=== PATIENT | female | born 1940 | race Caucasian/White ===

== ENCOUNTER 2016-06-17 14:38 | Emergency (ER) | payer OTHER ==
[~2016-06-17] VITALS: Ht 157.5 cm; Wt 63.6 kg
[2016-06-17 14:46] VITALS: Ht 157.5 cm; Wt 63.6 kg
[2016-06-17] MEDS ORDERED: ACETAMINOPHEN 500 MG TAB PO STA (17:36)
[2016-06-17] MEDS ORDERED: SOD CHLORIDE 0.9% 1,000 ML IV STA (17:36)
--- NOTE | 2016-06-17 18:24 | RADRPT ---
PROCEDURE: XR Chest. CLINICAL INDICATION: Chest pain. Abdominal pain TECHNIQUE: Portable AP semi erect view of the chest was obtained. COMPARISON: None. FINDINGS: The cardiomediastinal silhouette is within upper normal limits. The lungs are clear. There is no e vidence for pleural effusion, pneumothorax or pulmonary vascular congestion. The osseous structures are intact with no evidence for acute abnormality. Calcification is visible within the aorta RPTAT:HJJR IMPRESSION: 1.No evidence for acute intrathoracic pathology. 2. Aortic atherosclerosis is present. Physician Joey Date Time Electronically viewed and signed by Physician Joey on 06/17/2016 18:23 JR/
--- NOTE | 2016-06-17 19:03 | RADRPT ---
PROCEDURE: CT Abdomen and Pelvis without contrast. CLINICAL INDICATION: Right-sided abdominal pain TECHNIQUE: CT scan of the abdomen and pelvis without contrast was performed without intravenous co ntrast. Coronal and sagittal reformatted images were obtained from the axial source images. Images were reviewed on a high-resolution PACS workstation. The total exam DLP equals 368 mGy-cm. One or more of the following dose reduction techniques were used: Automated exposure control Adjustment of the mA and/or kV according to patient size. Use of iterative reconstruction technique. COMPARISON: None. FINDINGS: There is mild atelectasis/scarring within the bilateral lung bases. Patchy ground-glass opacities a re also visualized within the bilateral lower lobes which can be seen with pulmonary edema. There i s cardiomegaly. There are calcifications within the coronary arteries. The heart size is within no rmal limits. The aorta and its branches are normal in size and caliber. Mild to moderate atherosclerotic vascular calcifications are present. The kidneys are symmetric in size and density. There is no perinephric fat stranding. There is no ne phroureterolithiasis or hydronephrosis. The ureters are normal in course and caliber. Evaluation of solid organs is limited due to the lack of intravenous contrast. However, the liver, g allbladder, spleen, pancreas, and adrenal glands are unremarkable. Evaluation of the gastrointestinal tract is limited due to the lack of oral contrast. The esophagus and stomach are unremarkable. The small bowel loops are normal in caliber without evidence of smal l bowel obstruction. Stool is noted throughout the colon. There are also diverticula within the as cending, descending, and sigmoid colon without evidence for diverticulitis. The appendix is visuali zed, and is normal. There is no free intraperitoneal fluid or pneumoperitoneum. There is no mesenteric, retroperitoneal, or pelvic lymphadenopathy. The bladder is mildly distended, but grossly unremarkable. The uterus and adnexa are unremarkable. There is no pelvic free fluid. There is a mild to moderate compression fracture of the L1 vertebral body and a mild compression fra cture of the T12 vertebral body. These may be chronic. There are mild to moderate degenerative sana nges of both hips with mild joint space narrowing and osseous spurring. There is facet arthropathy within the lumbar spine more prominent at L4-L5 and L5-S1. RPTAT: ZZ IMPRESSION: 1. No acute intra-abdominal abnormality. 2. Diverticulosis without evidence for diverticulitis. 3. Atherosclerotic vascular disease. 4. Cardiomegaly with mild pulmonary edema. 5. Mild to moderate compression fractures of the T12 and L1 vertebral bodies which may be chronic. .Bisi Oneal MD, MD Date Time Electronically viewed and signed by .Bisi Oneal MD, MD on 06/17/2016 19:03 .T/
[2016-06-17 19:41] LABS: BASOPHILS % 0.4 % (0.0-2.0); EOSINOPHILS # 0.1 10^3/ul (0.0-0.5); EOSINOPHILS % 1.3 % (0.0-7.0); HEMATOCRIT 39.6 % (37.0-47.0); HEMOGLOBIN 13.5 g/dl (12.0-16.0); LYMPHOCYTES # 1.1 10^3/ul (0.8-2.9); LYMPHOCYTES % 21.8 % (15.0-51.0); MEAN CORPUSCULAR HEMOGLOBIN 34.5 pg (29.0-33.0); MEAN CORPUSCULAR HGB CONC 34.1 g/dl (32.0-37.0); MEAN CORPUSCULAR VOLUME 101.4 fl (82.0-101.0); MEAN PLATELET VOLUME 7.5 fl (7.4-10.4); MONOCYTE # 0.9 10^3/ul (0.3-0.9); MONOCYTES % 17.5 % (0.0-11.0); NEUTROPHIL # 3.1 10^3/ul (1.6-7.5); PLATELET COUNT 152 10^3/UL (140-440); RED BLOOD COUNT 3.91 10^6/ul (4.20-5.40); UNCORRECTED WBC 5.2 10^3/ul (4.8-10.8); WHITE BLOOD COUNT 5.2 10^3/ul (4.8-10.8)
[2016-06-17 19:43] LABS: CONDITION 1; LH ANALYZER COMMENTS 1
[2016-06-17 19:51] LABS: ALBUMIN 3.9 g/dl (3.3-4.9)
[2016-06-17 19:52] LABS: POTASSIUM 4.2 mmol/L (3.5-5.1)
[2016-06-17 19:54] LABS: BILIRUBIN,INDIRECT 0.8 mg/dl (0-1.1); BILIRUBIN,TOTAL 0.8 mg/dl (0.2-1.3); CREATININE 0.74 mg/dl (0.44-1.00); TOTAL PROTEIN 6.7 g/dl (6.1-8.1)
[2016-06-17 19:55] LABS: ALBUMIN/GLOBULIN RATIO 1.39; CALCIUM 8.9 mg/dl (8.4-10.2)
[2016-06-17] MEDS ORDERED: SOD CHLORIDE 0.9% 500 ML IV ONE (21:00)
[2016-06-17 21:23] LABS: PLATELET ESTIMATE PLT APPEAR ADEQUATE
[2016-06-17 21:45] LABS: ADD UMIC YES; URINE BILIRUBIN (Dip) NEGATIVE (NEGATIVE); URINE BLOOD (Dip) 1+ (NEGATIVE); URINE COLOR LT. YELLOW (YELLOW); URINE GLUCOSE (Dip) NEGATIVE (NEGATIVE); URINE KETONES (Dip) NEGATIVE (NEGATIVE); URINE LEUKOCYTE ESTERASE (Dip) 1+ (NEGATIVE); URINE NITRITE (Dip) NEGATIVE (NEGATIVE); URINE TOTAL PROTEIN (Dip) NEGATIVE (NEGATIVE); URINE UROBILINOGEN (Dip) 0.2 E.U./dL (0.1-1.0)
[2016-06-17 22:24] LABS: BACTERIA,URINE OCCASIONAL; SQUAMOUS EPITHELIAL CELL,UR OCCASIONAL
[2016-06-17] MEDS ORDERED: ALBU8.5H3 INH (22:56)
[2016-06-17] MEDS ORDERED: CEPH-443 PO (22:56)
[2016-06-17] MEDS ORDERED: ACET500C5 PO (22:56)
[2016-06-17 23:03] VITALS: BP 155/89; PULSE 81; RESP 20; TEMP 98.1
--- NOTE | 2016-06-17 23:04 | ERD ---
ER Documentation Chief Complaint Date/Time DATE: 06/17/16 TIME: 22:59 Chief Complaint hx siatica back pain x today HPI 76-year-old female with a past medical history of hypertension, hyperlipidemia, diabetes presents to the ED complaining of bilateral back pain that started 3 days ago. Patient's son interpreted Italian at this time. Stated that patient' s back feels "hard". Denies any nausea, vomiting, diarrhea. Reports the patient has normal bowel movements. Denies any melena, bloody stools. Patient reports that she has a slight dry cough. Denies any fever at home however stated that they have a low-grade fever here. States that she took all of her medications. Reports that she is taking vitamin D, losartan, atenolol, calcium , simvastatin, aspirin, albuterol psyllium, metformin. Denies any chest pain, shortness of breath, dyspnea on exertion, orthopnea, pleuritic chest pain. ROS All systems reviewed and are negative except as per history of present illness. Medications Home Meds Active Scripts Cephalexin* (Keflex*) 500 Mg Capsule, 500 MG PO QID for 7 Days, CAP Prov:SHAD ETIENNE PA-C 06/17/16 Albuterol Sulfate* (Proair HFA*) 8.5 Gm Hfa.aer.ad, 2 PUFF INH Q4, #1 INHALER Prov:SHAD ETIENNE PA-C 06/17/16 Acetaminophen* (Tylophen*) 500 Mg Capsule, 1 CAP PO Q6H Y for PAIN AND OR ELEVATED TEMP, #20 CAP Prov:SHAD ETIENNE PA-C 06/17/16 Allergies Allergies: Coded Allergies: No Known Allergy (Unverified , 06/17/16) PMhx/Soc Medical and Surgical Hx: pt denies Surgical Hx History of Surgery: No Anesthesia Reaction: No Hx Neurological Disorder: No Hx Respiratory Disorders: No Hx Psychiatric Problems: No Hx Miscellaneous Medical Probl: No Hx Alcohol Use: No Hx Substance Use: No Hx Tobacco Use: No Smoking Status: Unknown if ever smoked Physical Exam Vitals Vital Signs Date Time Temp Pulse Resp B/P Pulse Ox O2 Delivery O2 Flow Rate FiO2 06/17/16 14:46 100.4 88 20 171/96 98 Physical Exam Const: Wvw-tlb-kjudmsyxw, well-nourished. In no acute distress. Head: Atraumatic, normocephalic Eyes: Normal Conjunctiva without injection. No purulent discharge. ENT: Normal external ear, nose. Moist oropharynx without tonsillar exudates. Non -erythematous pharynx. Uvula midline. No drooling. No trismus. Neck: No cervical midline tenderness. Full range of motion. No meningismus. No cervical lymphadenopathy. No JVD. Resp: Clear to auscultation bilaterally. No wheezing, rhonchi, rales, or crackles. No accessory muscle use. No retractions. Cardio: Regular rate and rhythm. No murmurs, rubs or gallops. Abd: Soft, no tenderness to palpation, non distended. Normal bowel sounds. No palpable masses. No rebound tenderness. No guarding. Negative McBurney's point. Negative psoas sign. Negative obturator sign. Skin: No petechiae or rashes Back: No midline tenderness. Tenderness to palpation of the bilateral paraspinal muscles near the T 7 L1. Slight bilateral CVA tenderness. Ext: No cyanosis, or edema. Neur: Awake and alert. Normal gait. Normal coordination. Psych: Normal Mood and Affect Result Diagram: 06/17/16189906/17/161899 Results 24 hrs Laboratory Tests Test 06/17/16 19:00 06/17/16 21:34 Alanine Aminotransferase (ALT/SGPT) 23IU/L Albumin 3.9g/dl Albumin/Globulin Ratio 1.39 Alkaline Phosphatase 86IU/L Anion Gap 14 Aspartate Amino Transf (AST/SGOT) 21IU/L Basophils # 0.010^3/ul Basophils % 0.4% Blood Morphology Comment Blood Urea Nitrogen 10mg/dl Calcium Level 8.9mg/dl Carbon Dioxide Level 27mmol/L Chloride Level 91mmol/L Creatinine 0.74mg/dl Direct Bilirubin 0.00mg/dl Eosinophils # 0.110^3/ul Eosinophils % 1.3% Globulin 2.80g/dl Glucose Level 101mg/dl Hematocrit 39.6% Hemoglobin 13.5g/dl Indirect Bilirubin 0.8mg/dl Lipase 135U/L Lymphocytes # 1.110^3/ul Lymphocytes % 21.8% Mean Corpuscular Hemoglobin 34.5pg Mean Corpuscular Hemoglobin Concent 34.1g/dl Mean Corpuscular Volume 101.4fl Mean Platelet Volume 7.5fl Monocytes # 0.910^3/ul Monocytes % 17.5% Neutrophils # 3.110^3/ul Neutrophils % 59.0% Nucleated Red Blood Cells # 0.010^3/ul Nucleated Red Blood Cells % 0.0/100WBC Platelet Count 98760^3/UL Platelet Estimate PLT APPEAR ADEQUATE Potassium Level 4.2mmol/L Red Blood Count 3.9110^6/ul Red Cell Distribution Width 13.0% Sodium Level 128mmol/L Total Bilirubin 0.8mg/dl Total Protein 6.7g/dl White Blood Count 5.210^3/ul Urine Bacteria OCCASIONAL Urine Bilirubin NEGATIVE Urine Clarity CLEAR Urine Color LT. YELLOW Urine Glucose NEGATIVE% Urine Hemoglobin 1+ Urine Ketones NEGATIVE Urine Leukocyte Esterase 1+ Urine Microscopic RBC 2-5/HPF Urine Microscopic WBC 2-5/HPF Urine Nitrite NEGATIVE Urine Specific [place] <=1.005 Urine Squamous Epithelial Cells OCCASIONAL Urine Total Protein NEGATIVE Urine Urobilinogen 0.2 E.U./dL Urine pH 7.0 Current Medications Medications (Trade) Dose Ordered Sig/Vonda Route PRN Reason Start Time Stop Time Status Last Admin Dose Admin Sodium Chloride (NS) 1,000 ml @ 1,000 mls/hr Q1H STAT IV 06/17/16 17:36 06/17/16 18:35 DC 06/17/16 19:00 Acetaminophen 500 mg 500 mg ONCE STAT PO 06/17/16 17:36 06/17/16 17:39 DC 06/17/16 17:36 Sodium Chloride (NS) 500 ml @ 500 mls/hr Q1H ONCE IV 06/17/16 21:00 06/17/16 21:59 DC 06/17/16 20:47 Procedures/MDM This is a 76-year-old female with a past medical history of diabetes, hypertension, hyperlipidemia presents the ED complaining of bilateral flank pain. Patient has a low-grade fever 100.4. Patient was further worked up with CBC, CMP, lipase, UA, urine , CT of the abdomen and pelvis without contrast. Patient's pain and symptoms have improved after treatment with Tylenol 500 mg with improvement of her pain. CBC: No leukocytosis. No e/o of systemic infection. No e/o anemia. CMP: No e/o severe acidosis, alkalosis, renal failure, diabetic ketoacidosis, liver disease. Hyponatremia of 128 noted. Patient was treated here in the ED with 1.5 L of normal saline with improvement of her symptoms. Lipase within normal limits. Urine: No leukocyte esterase, no nitrites, no hematuria. PROCEDURE: CT Abdomen and Pelvis without contrast. CLINICAL INDICATION: Right-sided abdominal pain TECHNIQUE: CT scan of the abdomen and pelvis without contrast was performed without intravenous contrast. Coronal and sagittal reformatted images were obtained from the axial source images. Images were reviewed on a high- resolution PACS workstation. The total exam DLP equals 368 mGy-cm. One or more of the following dose reduction techniques were used: Automated exposure control Adjustment of the mA and/or kV according to patient size. Use of iterative reconstruction technique. COMPARISON: None. FINDINGS: There is mild atelectasis/scarring within the bilateral lung bases. Patchy ground-glass opacities are also visualized within the bilateral lower lobes which can be seen with pulmonary edema. There is cardiomegaly. There are calcifications within the coronary arteries. The heart size is within normal limits. The aorta and its branches are normal in size and caliber. Mild to moderate atherosclerotic vascular calcifications are present. The kidneys are symmetric in size and density. There is no perinephric fat stranding. There is no nephroureterolithiasis or hydronephrosis. The ureters are normal in course and caliber. Evaluation of solid organs is limited due to the lack of intravenous contrast. However, the liver, gallbladder, spleen, pancreas, and adrenal glands are unremarkable. Evaluation of the gastrointestinal tract is limited due to the lack of oral contrast. The esophagus and stomach are unremarkable. The small bowel loops are normal in caliber without evidence of small bowel obstruction. Stool is noted throughout the colon. There are also diverticula within the ascending, descending, and sigmoid colon without evidence for diverticulitis. The appendix is visualized, and is normal. There is no free intraperitoneal fluid or pneumoperitoneum. There is no mesenteric, retroperitoneal, or pelvic lymphadenopathy. The bladder is mildly distended, but grossly unremarkable. The uterus and adnexa are unremarkable. There is no pelvic free fluid. There is a mild to moderate compression fracture of the L1 vertebral body and a mild compression fracture of the T12 vertebral body. These may be chronic. There are mild to moderate degenerative changes of both hips with mild joint space narrowing and osseous spurring. There is facet arthropathy within the lumbar spine more prominent at L4-L5 and L5-S1. RPTAT: ZZ IMPRESSION: 1. No acute intra-abdominal abnormality. 2. Diverticulosis without evidence for diverticulitis. 3. Atherosclerotic vascular disease. 4. Cardiomegaly with mild pulmonary edema. 5. Mild to moderate compression fractures of the T12 and L1 vertebral bodies which may be chronic. PROCEDURE: XR Chest. CLINICAL INDICATION: Chest pain. Abdominal pain TECHNIQUE: Portable AP semi erect view of the chest was obtained. COMPARISON: None. FINDINGS: The cardiomediastinal silhouette is within upper normal limits. The lungs are clear. There is no evidence for pleural effusion, pneumothorax or pulmonary vascular congestion. The osseous structures are intact with no evidence for acute abnormality. Calcification is visible within the aorta RPTAT:HJJR IMPRESSION: 1.No evidence for acute intrathoracic pathology. 2. Aortic atherosclerosis is present. Patient is done patient symptoms, with cough and flank pain, patient symptoms could likely be due to viral etiology. Patient's urinalysis showed 1+ leukocyte esterase with 2-5 white blood cells. Patient will be treated with Keflex on outpatient basis. This case was discussed with my supervising physician, Dr. Smith. Both agreed patient can be managed on outpatient basis. A differential diagnosis considered includes but is not limited to gastritis, GERD, peptic ulcer disease, cholecystitis, choledocholithiasis, cholangitis, pancreatitis, appendicitis, bowel obstruction, ileus, volvulus, nephrolithiasis, pyelonephritis, hepatitis, perforated viscus, diverticulitis, abdominal hernia, acute abdomen, mesenteric ischemia or other emergent conditions. Patient has diverticulosis without signs of diverticulitis. No evidence of abscess, perforation or bleeding noted. Patient is ambulating here in the ED without difficulty. Patient has chronic compression fractures of T7 and L1. Denies saddle anesthesia, numbness or tingling, urine or bowel incontinence, weakness. Low suspicion for cauda equina syndrome, cord compression, nephrolithiasis, aortic aneurysm, aortic dissection, epidural abscess, spinal hematoma, malignancy, pyelonephritis, degenerative disc disease , spinal stenosis, or other emergent conditions. Discharge medications: Keflex, pro-air, Tylenol Follow up with primary care physician in 1-2 days for referral to forensic structural engineer. Instructed patient to return to the ED sooner for any worsening symptoms. Patient's questions were answered. Patient understood and agreed with discharge plan. Patient discharged stable. Departure Diagnosis: Primary Impression: Back pain Back pain location: low back pain Chronicity: unspecified Back pain laterality: bilateral Sciatica presence: unspecified whether sciatica present Qualified Code: M54.5 - Bilateral low back pain, unspecified chronicity, with sciatica presence unspecified Additional Impression: Viral syndrome Condition: Stable Patient Instructions: Back Pain (Acute Or Chronic), Viral Syndrome (Adult) [facility] Usted se [place]apleton hecho un examen mdico de control que le indica que no est en otf condicin que requiera tratamiento urgente en el Departamento de Emergencia. Un estudio ms profundo y el tratamiento de bennett condicin pueden esperar sin ningn riesgo hasta que usted sea atendida/o en el consultorio de bennett mdico o otf cl hannah. Es responsabilidad suya arreglar otf froy para el seguimiento del priyank. MANEJO DE CONDICIONES NO URGENTES EN EL FUTURO 1) Si usted tiene un mdico de atencin primaria: Usted debera llamar a bennett mdico de atencin primaria antes de venir al departamento de emergencia. Despus de las horas de consultorio, bennett doctor o bennett asociado/a est disponible por telfono. El mdico o enfermero de jordan en el servicio telefnico puede asesorarle por denise medio para atender el problema, o priyank contrario se puede programar otf froy. 2) Si usted no tiene un mdico de atencin primaria: Llame al mdico o clnica de referencia que aparece abajo augusta las horas de consultorio para hacer otf froy para que le vean. CLINICAS: [facility] 463 [phone] [address] [facility] 295 [phone] [address] [facility] 210 [phone] [address] [facility] [phone] [address] [facility]. [facility] 068 [phone] [address] [facility]. [phone] [address] [facility] () Usted se stapleton hecho un examen mdico de control que le indica que no est en otf condicin que requiera tratamiento urgente en el Departamento de Emergencia. Un estudio ms profundo y el tratamiento de bennett condicin pueden esperar sin ningn riesgo hasta que usted sea atendida/o en el consultorio de bennett mdico o otf cl hannah. Es responsabilidad suya arreglar otf froy para el seguimiento del priyank. MANEJO DE CONDICIONES NO URGENTES EN EL FUTURO 1) Si usted tiene un mdico de atencin primaria: Usted debera llamar a bennett mdico de atencin primaria antes de venir al departamento de emergencia. Despus de las horas de consultorio, bennett doctor o bennett asociado/a est disponible por telfono. El mdico o enfermero de jordan en el servicio telefnico puede asesorarle por denise medio para atender el problema, o priyank contrario se puede programar otf froy. 2) Si usted no tiene un mdico de atencin primaria: Llame al mdico o condado institucions de referencia que aparece abajo augusta las horas de consultorio para hacer otf froy para que le vean. SI USTED NO PUEDE PAGAR PARA KALIE UN MEDICO puede ir a: [facility] [address] [place] [address] [facility] [address] [place] [address] [facility] [address] [place] [address] [facility] [address] [place] [address] [facility] URGENT CARE/SPECIALTIES Additional Instructions: Visite a bennett mdagnes becerra para un EXAMEN.Regrese a estas instalaciones si no se mejora ronald esperbamos o ronald le dijimos. SHAD ETIENNE PA-C Jun 17, 2016 23:04
== END 2016-06-17 23:29 | disposition home or self-care (01) ==
LOC: FTE 14:38
DX: M54.5 Low back pain (principal); I10 Essential (primary) hypertension; E11.9 Type 2 diabetes mellitus without complications
CPT/HCPCS: 36415; 71010; 74176; 80053; 81001; 83690; 85025; 99285; J7030; J7040; 81003

== ENCOUNTER 2017-05-08 16:18 | Inpatient (IN) | END 2017-05-11 15:20 | disposition home or self-care (01) | DRG 308 ==

== ENCOUNTER 2017-10-29 19:46 | Inpatient (IN) | END 2017-10-30 18:20 | disposition home or self-care (01) | DRG 308 ==

== ENCOUNTER 2018-04-26 05:10 | Inpatient (IN) | END 2018-04-27 15:29 | disposition home or self-care (01) | DRG 308 ==